=== PATIENT | male | born 1940 | race Caucasian/White ===

== ENCOUNTER → 2016-10-24 08:04 | Outpatient (CLI) | payer MEDICARE | END | disposition home or self-care (01) | LOC: D.RT 08:00 | DX: J45.21 Mild intermittent asthma with (acute) exacerbation (principal) ==

== ENCOUNTER → 2016-12-15 15:26 | Outpatient (CLI) | payer MEDICARE ==
[2016-12-17 10:19] LABS: ANA REFLEX - DIRECT Negative (Negative)
[2016-12-18 12:18] LABS: ANGIOTENSIN CONVERTING ENZYME 43 U/L (14-82)
== END | disposition home or self-care (01) ==
LOC: D.LABREF 15:26
PROVIDERS: Internal Medicine Pulmonary Disease
DX: J44.9 Chronic obstructive pulmonary disease, unspecified (principal)

== ENCOUNTER 2017-04-13 09:03 | Day surgery (SDC) | payer MEDICARE ==
[~2017-04-13] VITALS: Ht 175.3 cm; Wt 104.5 kg
[2017-04-13 10:16] LABS: HEMATOCRIT 41.3 % (42.0-54.0); HEMOGLOBIN 13.5 g/dL (13.5-17.5); MCH 27.6 pg (26.0-34.0); MCHC 32.7 g/dL (31.0-37.0); MCV 84.3 fL (80.0-100.0); MEAN PLATELET VOLUME 9.1 fL (7.4-10.4); RBC 4.9 10x6/uL (4.20-6.10); RDW 14.6 % (11.5-14.5); WBC 9.6 10x3/uL (4.8-10.8)
[2017-04-13 10:27] LABS: ANION GAP 11.7 mmol/L (8-16); CALCIUM 9.1 mg/dL (8.5-10.1); CARBON DIOXIDE 28.4 mmol/L (21.0-32.0); CREATININE - SERUM 2.1 mg/dL (0.6-1.3); POTASSIUM - SERUM 4.1 mmol/L (3.5-5.1)
[2017-04-13] MEDS ORDERED: ZYLOPRIM100 MG PO (10:46)
[2017-04-13] MEDS ORDERED: ARICEPT10 MG PO (10:47)
[2017-04-13] MEDS ORDERED: HYZAAR 100-12.51 TAB PO (10:48)
[2017-04-13] MEDS ORDERED: ZOCOR40 MG PO (10:50)
[2017-04-13] MEDS ORDERED: PROPRANOLOL HCL80 MG PO (10:50)
[2017-04-13] MEDS ORDERED: NIASPAN500 MG PO (10:51)
[2017-04-13] MEDS ORDERED: FISH OIL 1,0001 CA1 PO (10:52)
[2017-04-13] MEDS ORDERED: FOLTX TABLET1 EACH PO (10:52)
[2017-04-13] MEDS ORDERED: ADVAIR 500/501 DISK INH (10:53)
[2017-04-13] MEDS ORDERED: VENTOLIN HFA18 GM INH (10:53)
[2017-04-13] MEDS ORDERED: ATROVENT 0.02%2.5 ML UPD (10:54)
[2017-04-13] MEDS ORDERED: IPRAT-ALBUT 0.5-3 ML UPD (10:56)
[2017-04-13 11:07] VITALS: BP 127/62; Ht 175.3 cm; Wt 104.5 kg
--- NOTE | 2017-04-13 11:47 | NUR ---
STARTED 2O GAUGE IV IN RIGHT AC. 1 ATTEMPT. CDI AND PATENT.
--- NOTE | 2017-04-13 13:00 | NUR ---
PT REC'D TO ROOM VIA STRETCHER. AWAKE, ALERT, ORIENTED. DR. ANG IN TO SPEAK WITH PT AND .
--- NOTE | 2017-04-13 13:15 | NUR ---
FULL LIQ DIET PROVIDED.
--- NOTE | 2017-04-13 13:50 | NUR ---
TOLERATED FULL LIQ DIET WITH NO N/V.
--- NOTE | 2017-04-13 14:20 | NUR ---
D/C INSTRUCTIONS EXPLAINED TO PT, WITH ALL APPOINTMENTS. VOICED UNDERSTANDING. COPIES OF ALL GIVEN.
--- NOTE | 2017-04-13 14:25 | NUR ---
D/C'D HOME VIA W/C TO PRIVATE CAR.
--- NOTE | 2017-04-13 15:44 | NUR ---
ORDERS, FINDINGS AND DEMOGRAPHIC SHEETS FAXED TO [facility]. THEY ARE TO CONTACT PT. DEMOGRAPHIC AND FINDINGS FAXED TO DR. DUMONT'S OFFICE REQUESTED.
--- NOTE | 2017-04-16 11:51 | OP ---
PATIENT NAME: KELSI WADDELL MEDICAL RECORD: [id number] :41 LOCATION:[facility] ADMISSION DATE: SURGEON: KATTY ANG DO DATE OF OPERATION: 04/13/2017 PROCEDURE: Colonoscopy with polypectomy, biopsy, and submucosal injection. SCOPE: CompStak video pediatric colonoscope. MEDICATIONS: Propofol 250 mg IV per anesthesia. ESTIMATED BLOOD LOSS: Insignificant. WITHDRAWAL TIME: 17 minutes. COMPLICATIONS: None. INDICATIONS FOR PROCEDURE: Right-sided abdominal pain and occult blood in stools. FINDINGS: Informed consent was given. The patient was made comfortable with the above medication. After reaching an adequate level of sedation by slow IV push, the patient was placed on his left side. A digital rectal examination was performed and it was normal. The endoscope was then advanced under direct visualization through the rectum to the cecum with visualization of the appendiceal orifice and ileocecal valve. The scope was slowly withdrawn and mucosa was carefully examined. Retroflexion was performed in the rectum. In the proximal descending colon, there was a single benign appearing sessile polyp which measured approximately 5 mm in diameter. It was removed using a hot snare in 1 piece and completely retrieved. In the distal descending to sigmoid colon located at approximately 30 cm, a mass was visualized. It measured approximately 4 x 4 cm in size. It encompassed 50-75% of the circumference of the colonic wall. It protruded in the lumen and was friable. Multiple biopsies were taken to secure the diagnosis. Upon retroflexion in the rectum, there was visualization of small to medium sized internal hemorrhoids, which were not bleeding. There was also moderate pandiverticulosis. After the mass was biopsied, Valery ink tattooing was performed both proximally and distally to the mass. Approximately 8-9 mL of tattoo was used. The endoscope was withdrawn from the patient. The patient tolerated the procedure well and there were no complications. IMPRESSION: 1. A mass was located at approximately 30 cm from the anal verge. It measured approximately 4 cm x 4 cm, and encompassed 50-75% of the circumference of the colon wall. Multiple biopsies were taken and tattoo was placed both proximally and distally. 2. Proximal descending colon polyp removed using a hot snare. 3. Small to moderate sized internal hemorrhoids without bleeding. 4. Moderate pandiverticulosis. PLAN AND RECOMMENDATIONS: 1. Discharge home when recovery parameters are met. 2. Follow up biopsy specimen results. 3. Referrals to oncology and surgery. 4. PET CT scan for staging. OPERATIVE REPORT [id number] KELSI WADDELL 5. CEA level. 6. We will need a repeat colonoscopy in 6 months to 1 year after resection. TRANSINT:[id number] Voice Confirmation ID: [id number] DOCUMENT ID: [id number] KATTY ANG DO at 1151 CC: [id number] DICTATION DATE: 04/13/17 1248 MEDICAL LEADER: 04/13/17 1305 [facility] 04/13/17 [id number] [place] [address]
== END 2017-04-13 14:25 | disposition home or self-care (01) ==
LOC: D.OPS 09:03
PROVIDERS: Anesthesiology
DX: R19.5 Other fecal abnormalities (principal); D12.4 Benign neoplasm of descending colon; R22.2 Localized swelling, mass and lump, trunk; J44.9 Chronic obstructive pulmonary disease, unspecified; I10 Essential (primary) hypertension; Z01.812 Encounter for preprocedural laboratory examination

== ENCOUNTER 2017-05-05 05:12 | Inpatient (IN) | payer OTHER ==
[2017-05-01 10:54] LABS: BASOPHILS 0.4 % (0-2); EOSINOPHILS 3.5 % (0-7); HEMATOCRIT 39.4 % (42.0-54.0); HEMOGLOBIN 12.9 g/dL (13.5-17.5); IMMATURE GRANULOCYTES 0.3 % (0-5); MCH 27.9 pg (26.0-34.0); MCHC 32.7 g/dL (31.0-37.0); MCV 85.1 fL (80.0-100.0); MEAN PLATELET VOLUME 8.8 fL (7.4-10.4); MONOCYTES 13.6 % (2-11); NEUTROPHILS 63.2 % (40-80); PLATELET COUNT 225 10x3/uL (130-400); RBC 4.63 10x6/uL (4.20-6.10); RDW 14.8 % (11.5-14.5); WBC 7.1 10x3/uL (4.8-10.8)
[2017-05-01 11:01] LABS: APTT 31.4 SECONDS (22.8-39.4); INR 1.05 (0.85-1.17); PROTIME 13.3 SECONDS (11.6-15.0)
[2017-05-01 11:23] LABS: ANION GAP 11.4 mmol/L (8-16); CALCIUM 9.5 mg/dL (8.5-10.1); CARBON DIOXIDE 32.7 mmol/L (21.0-32.0); POTASSIUM - SERUM 4.1 mmol/L (3.5-5.1)
[~2017-05-05] VITALS: Ht 175.3 cm; Wt 103.9 kg
--- NOTE | ~2017-05-05 | DS ---
PATIENT:KELSI WADDELL :42 MEDICAL RECORD: [id number] DISCHARGE SUMMARY ADMISSION DATE: 05/05/17 DISCHARGE DATE: 05/08/17 DATE OF ADMISSION: 05/05/2017 DATE OF DISCHARGE: 05/08/2017 ADMISSION DIAGNOSES: 1. Adenocarcinoma of the sigmoid colon. 2. Hypertension. 3. Chronic obstructive pulmonary disease. 4. Alzheimer's. 5. Parkinson disease. DISCHARGE DIAGNOSES: 1. Adenocarcinoma of the sigmoid colon. 2. Hypertension. 3. Chronic obstructive pulmonary disease. 4. Alzheimer's. 5. Parkinson disease. 6. "The patient has stage III sigmoid colon cancer." PROCEDURE: Hand-assisted laparoscopic sigmoid colectomy on 05/05/2017. CONSULTATIONS: None. REPORT OF HOSPITALIZATION: The patient was admitted to the hospital after a successful hand-assisted laparoscopic sigmoid colectomy. The patient had a normal postoperative course with no complications. The patient's blood counts were stable. His kidney function, which was mildly elevated, actually improved throughout his hospitalization. Eventually on postoperative day #2, he started having bowel function and was started on a diet. He tolerated this well and was able to be advanced. By postoperative day #3, he was ambulating and off all IV medications and felt to be stable for discharge home. His incisions were healing well. He had no fevers and no problems with his vital signs. His final path report returned and it showed that he had 5 out of 6 lymph nodes positive for malignancy giving him a stage III diagnosis. DISCHARGE INSTRUCTIONS: He will return to clinic or call for any questions or concerns, fevers, chills, nausea, vomiting, or worsening abdominal pain. ACTIVITIES: No heavy lifting or straining for 6 weeks postoperatively. FOLLOWUP: In clinic with me in 10 to [address] Acosta in 1-2 weeks. DISCHARGE MEDICATIONS: Resume all home medications with the inclusion of Banquete 10s. TRANSINT:[id number] Voice Confirmation ID: [id number] DOCUMENT ID: [id number] DISCHARGE SUMMARY REPORT [id number] KELSI WADDELL CHRISTIAN MD at 0956 CC: [id number] DICTATION DATE: 05/08/17 0805 CREATIVE PROJECT MANAGER: 05/08/17 1307 [facility] 05/08/17 [place] [address]
--- NOTE | ~2017-05-05 | OP ---
PATIENT NAME: KELSI WADDELL MEDICAL RECORD: [id number] :41 LOCATION:[facility] [place]:05/05/17 SURGEON: FELIPE CONDON MD DATE OF OPERATION: 05/05/2017 DATE OF OPERATION: 05/05/2017 PREOPERATIVE DIAGNOSES: 1. Sigmoid colon cancer. 2. Chronic obstructive pulmonary disease. 3. Hypercholesterolemia. 4. Hypertension. 5. Asthma. 6. Arthritis. POSTOPERATIVE DIAGNOSES: 1. Sigmoid colon cancer. 2. Chronic obstructive pulmonary disease. 3. Hypercholesterolemia. 4. Hypertension. 5. Asthma. 6. Arthritis. PROCEDURE: Hand-assisted laparoscopic sigmoid colectomy. SURGEON: Felipe Condon MD REPORT OF PROCEDURE: The patient's abdomen was prepped and draped in sterile fashion. A skin incision was made in the midline in the suprapubic region. Electrocautery was used to dissect through the subcutaneous tissues and fascia until we entered the abdominal cavity. A Gelport was inserted with a 5-mm trocar within it. The abdomen was then insufflated. A 5-mm trocar was placed in the right lateral abdomen and a 12-mm trocar was then placed just anterior to the right anterior superior iliac crest. The colon was elevated. I could see a small tattooing of the distal sigmoid colon and a palpable mass was present. We made a window at the rectosigmoid junction just below the rectum in the mesocolon. A 55 blue load Endo TEO stapler was used to transect the proximal rectum at this point. The mesentery was then taken down initially by scoring the peritoneum with electrocautery. We were able to transect the superior hemorrhoidal vessel as extended towards the proximal rectum. This was done using a 55 white load Endo TEO stapler. We then followed this blood vessel down to the aortic bifurcation and again freed off of the peritoneum and was able to transect the superior hemorrhoidal artery using a 55 white load Endo TEO stapler. At this point, we inspected the remainder of the abdomen and saw no signs of any intra-abdominal processes. Preoperatively, the patient had a PET-CT scan, which showed no signs of any metastatic disease. The liver and abdominal wall themselves looked normal. At this point, we removed insufflation and eviscerated the sigmoid colon out of the wound through the wound protector. The mesentery was taken down using sequential clamp and tie technique with 2-0 silks. We then transected the distal left colon using electrocautery. The 2-0 Prolene was placed around the distal colon as a pursestring and a 29 EEA anvil was inserted. This was tied down tightly around the anvil. We then placed multiple rectal dilators through the anus and rectum and finally we passed the 29 EEA stapler. End-to-end anastomosis was performed. There were noted to be 2 intact rings of tissue in the stapler and we checked the anastomosis under water OPERATIVE REPORT [id number] KELSI WADDELL by instilling air through the rectum and it showed no signs of any leakage. We then placed a row of Lemberted 3-0 silk sutures over the anterior portion of the patient's anastomosis. There did not appear to be any tension on the anastomosis. At this point, we irrigated out the abdomen thoroughly with normal saline and assured there was no sign of any active bleeding. The midline fascia was then closed with running #1 looped PDS times 2. We irrigated out the wound and then closed all the incisions with skin andrew. COMPLICATIONS: None. CONDITION: Stable. ANESTHESIA: General endotracheal. BLOOD LOSS: 30 mL. TRANSINT:[id number] Voice Confirmation ID: [id number] DOCUMENT ID: [id number] FELIPE CONDON MD at 1542 CC: MACK REZA MD and KATTY ANG DO [id number] DICTATION DATE: 05/05/17 1424 [employer]CHO[employer] TEACHER: 05/05/17 1513 [facility] [address] [place] [address]
[~2017-05-05 05:12] MED LIST: ADVAIR 500/501 DISK INH; ARICEPT10 MG PO; ATROVENT 0.02%2.5 ML UPD; FISH OIL 1,0001 CA1 PO; FOLTX TABLET1 EACH PO; HYZAAR 100-12.51 TAB PO; IPRAT-ALBUT 0.5-3 ML UPD; NIASPAN500 MG PO; PROPRANOLOL HCL80 MG PO; VENTOLIN HFA18 GM INH; ZOCOR40 MG PO; ZYLOPRIM100 MG PO
[2017-05-05 11:32] VITALS: BP 120/61; BMI 33.9
[2017-05-05 15:52] VITALS: BP 108/57
[2017-05-05 18:53] VITALS: BP 108/57; BMI 33.9
[2017-05-05 20:00] VITALS: BP 97/56
[2017-05-06] VITALS: BP 110/60
[2017-05-06 04:00] VITALS: BP 109/58
[2017-05-06 05:47] LABS: BASOPHILS 0.2 % (0-2); EOSINOPHILS 0.7 % (0-7); HEMATOCRIT 37.4 % (42.0-54.0); HEMOGLOBIN 12.1 g/dL (13.5-17.5); IMMATURE GRANULOCYTES 0.3 % (0-5); LYMPHOCYTES 13.2 % (15-50); MCH 27.5 pg (26.0-34.0); MCHC 32.4 g/dL (31.0-37.0); MEAN PLATELET VOLUME 9.2 fL (7.4-10.4); NEUTROPHILS 72.6 % (40-80); RDW 14.9 % (11.5-14.5)
[2017-05-06 05:52] LABS: ANION GAP 12.4 mmol/L (8-16); CALCIUM 8.4 mg/dL (8.5-10.1); CARBON DIOXIDE 28.5 mmol/L (21.0-32.0); POTASSIUM - SERUM 3.9 mmol/L (3.5-5.1)
[2017-05-06 05:57] LABS: PLATELET COUNT 172 10x3/uL (130-400)
[2017-05-06 09:06] VITALS: BP 119/58
[2017-05-06 12:52] VITALS: BMI 33.8
[2017-05-06 13:19] VITALS: BP 113/63
[2017-05-06 16:50] VITALS: BP 125/62
[2017-05-06 21:41] VITALS: BP 109/59
[2017-05-07 01:13] VITALS: BP 100/50
[2017-05-07 04:00] VITALS: BP 149/77
[2017-05-07 05:21] LABS: BASOPHILS 0.1 % (0-2); EOSINOPHILS 1.3 % (0-7); HEMATOCRIT 37.4 % (42.0-54.0); IMMATURE GRANULOCYTES 0.1 % (0-5); LYMPHOCYTES 9.4 % (15-50); MCH 27.5 pg (26.0-34.0); MCHC 32.1 g/dL (31.0-37.0); MCV 85.6 fL (80.0-100.0); MEAN PLATELET VOLUME 9.3 fL (7.4-10.4); MONOCYTES 12.1 % (2-11); PLATELET COUNT 203 10x3/uL (130-400); RBC 4.37 10x6/uL (4.20-6.10); RDW 14.8 % (11.5-14.5); WBC 6.9 10x3/uL (4.8-10.8)
[2017-05-07 06:41] LABS: ANION GAP 13.5 mmol/L (8-16); CALCIUM 8.5 mg/dL (8.5-10.1); CARBON DIOXIDE 25.3 mmol/L (21.0-32.0); CREATININE - SERUM 1.7 mg/dL (0.6-1.3); POTASSIUM - SERUM 3.8 mmol/L (3.5-5.1)
[2017-05-07 08:53] VITALS: BP 135/63
[2017-05-07 12:24] VITALS: BP 144/70
[2017-05-07 15:04] VITALS: Ht 175.3 cm; Wt 103.9 kg
[2017-05-07 16:27] VITALS: BP 152/77
[2017-05-08 06:11] LABS: BASOPHILS 0.2 % (0-2); EOSINOPHILS 3.4 % (0-7); HEMATOCRIT 33.5 % (42.0-54.0); HEMOGLOBIN 10.9 g/dL (13.5-17.5); IMMATURE GRANULOCYTES 0.4 % (0-5); LYMPHOCYTES 13.8 % (15-50); MCH 27.4 pg (26.0-34.0); MCHC 32.5 g/dL (31.0-37.0); MCV 84.2 fL (80.0-100.0); MONOCYTES 14.4 % (2-11); NEUTROPHILS 67.8 % (40-80); PLATELET COUNT 199 10x3/uL (130-400); RBC 3.98 10x6/uL (4.20-6.10); RDW 14.8 % (11.5-14.5); WBC 5.4 10x3/uL (4.8-10.8)
[2017-05-08 06:35] LABS: ANION GAP 11.2 mmol/L (8-16); CALCIUM 8.4 mg/dL (8.5-10.1); CARBON DIOXIDE 27.4 mmol/L (21.0-32.0); CREATININE - SERUM 1.4 mg/dL (0.6-1.3); POTASSIUM - SERUM 3.6 mmol/L (3.5-5.1)
[2017-05-08] MEDS ORDERED: HYDROCODONE-APA1 TAB PO (08:00)
[2017-05-08 08:40] VITALS: BP 157/68
== END 2017-05-08 09:54 | disposition home or self-care (01) | DRG 330 ==
LOC: D.MS 05:12 → D.SDCHOLD 05:12 → D.MS 11:45
PROVIDERS: Anesthesiology; Surgery
PROC: 0DBN0ZZ Excision of Sigmoid Colon, Open Approach (ICD-10-PCS; principal; 2017-05-05 12:00)
DX: C18.9 Malignant neoplasm of colon, unspecified (principal); C77.2 Secondary and unspecified malignant neoplasm of intra-abdominal lymph nodes; J44.9 Chronic obstructive pulmonary disease, unspecified; E78.00 Pure hypercholesterolemia, unspecified; M19.90 Unspecified osteoarthritis, unspecified site; G20 Parkinson's disease; I12.9 Hypertensive chronic kidney disease with stage 1 through stage 4 chronic kidney disease, or unspecified chronic kidney disease; N18.3 Chronic kidney disease, stage 3 (moderate); G30.9 Alzheimer's disease, unspecified; F02.80 Dementia in other diseases classified elsewhere, unspecified severity, without behavioral disturbance, psychotic disturbance, mood disturbance, and anxiety

== ENCOUNTER 2017-06-02 05:28 | Day surgery (SDC) | payer OTHER ==
[~2017-06-02] VITALS: Ht 175.3 cm; Wt 99.3 kg
--- NOTE | ~2017-06-02 | OP ---
PATIENT NAME: KELSI WADDELL MEDICAL RECORD: [id number] :41 LOCATION:[facility] ADMISSION DATE: SURGEON: FELIPE CONDON MD DATE OF OPERATION: 06/02/2017 DATE OF PROCEDURE: 06/02/2017 PREOPERATIVE DIAGNOSES: 1. Stage III colon cancer. 2. Hypertension. 3. Hyperlipidemia. 4. Chronic obstructive pulmonary disease. POSTOPERATIVE DIAGNOSES: 1. Stage III colon cancer. 2. Hypertension. 3. Hyperlipidemia. 4. Chronic obstructive pulmonary disease. PROCEDURE: 1. Left subclavian vein port placement. 2. Fluoroscopic interpretation. SURGEON: Felipe Condon MD REPORT OF PROCEDURE: The patient's left chest was prepped and draped in sterile fashion. A needle was used to cannulate the left subclavian vein. A guidewire was advanced with ease. Fluoro was used to note that the wire was in good position in the venous system. A skin incision was made on the left superior lateral chest and a subcutaneous pouch was made over the pectoral fascia. The catheter was tunneled between this pouch and the wire exit site. The port was then sutured to the pectoral fascia using interrupted 2-0 Prolenes times 2. The catheter was cut with a beveled tip at 25 cm. The dilator trocar device was then placed over the wire and the wire and dilator were removed. The catheter tip was advanced through the trocar and the trocar was removed. The catheter tip resting in good position in the right atrial superior vena caval junction. The catheter aspirated nonpulsatile dark blood and flushed easily with heparinized saline. The subcutaneous tissues were reapproximated with interrupted 3-0 Vicryl and the skin incision was closed with subcutaneous 5-0 Monocryl. COMPLICATIONS: None. CONDITION: Stable. ANESTHESIA: General endotracheal. BLOOD LOSS: Minimal. TRANSINT:[id number] Voice Confirmation ID: [id number] DOCUMENT ID: [id number] OPERATIVE REPORT [id number] BAIRONFELIPE EARLY MD CC: MACK REZA [id number] DICTATION DATE: 06/02/17 0840 MASTER SONAR TECHNICIAN: 06/02/17 1145 [facility] [address] [place] [address]
[~2017-06-02 05:28] MED LIST changes: +HYDROCODONE-APA1 TAB PO
[2017-06-02 06:30] VITALS: BP 94/64; Ht 175.3 cm; Wt 99.3 kg
[2017-06-02 07:38] LABS: BASOPHILS 0.3 % (0-2); EOSINOPHILS 1.7 % (0-7); HEMATOCRIT 34.7 % (42.0-54.0); HEMOGLOBIN 11.2 g/dL (13.5-17.5); IMMATURE GRANULOCYTES 0.3 % (0-5); MCH 27.1 pg (26.0-34.0); MCHC 32.3 g/dL (31.0-37.0); MCV 83.8 fL (80.0-100.0); MEAN PLATELET VOLUME 8.5 fL (7.4-10.4); NEUTROPHILS 67.7 % (40-80); PLATELET COUNT 192 10x3/uL (130-400); RBC 4.14 10x6/uL (4.20-6.10); RDW 14.5 % (11.5-14.5); WBC 6.6 10x3/uL (4.8-10.8)
[2017-06-02 07:48] LABS: CARBON DIOXIDE 25.8 mmol/L (21.0-32.0); CREATININE - SERUM 2.3 mg/dL (0.6-1.3); POTASSIUM - SERUM 3.8 mmol/L (3.5-5.1)
[2017-06-02 07:50] LABS: APTT 33.1 SECONDS (22.8-39.4); INR 1.17 (0.85-1.17); PROTIME 14.5 SECONDS (11.6-15.0)
== END 2017-06-02 11:00 | disposition home or self-care (01) ==
LOC: D.OPS 05:28
PROVIDERS: Anesthesiology; Surgery
DX: C18.9 Malignant neoplasm of colon, unspecified (principal); I10 Essential (primary) hypertension; E78.5 Hyperlipidemia, unspecified; J44.9 Chronic obstructive pulmonary disease, unspecified; Z01.812 Encounter for preprocedural laboratory examination

== ENCOUNTER 2017-08-11 11:23 | Inpatient (IN) | payer OTHER ==
[~2017-08-11] VITALS: Ht 175.3 cm; Wt 96.7 kg
[2017-08-11 12:01] LABS: ANION GAP 19.1 mmol/L (8-16); BILIRUBIN - TOTAL 1.01 mg/dL (0.2-1.3); CALCIUM 8.6 mg/dL (8.5-10.1); CREATININE - SERUM 2.4 mg/dL (0.6-1.3); POTASSIUM - SERUM 4.1 mmol/L (3.5-5.1); PROTEIN - SERUM 7.1 g/dL (6.4-8.2)
[2017-08-11 13:10] LABS: APPEARANCE HAZY (CLEAR); BILIRUBIN NEGATIVE (NEGATIVE); COLOR DK YELLOW (YELLOW); GLUCOSE NEGATIVE (NEGATIVE); KETONE NEGATIVE (NEGATIVE); NITRITE NEGATIVE (NEGATIVE); PROTEIN 1+ mg/dL (NEGATIVE); SPECIFIC GRAVITY 1.025 (1.005-1.020); UROBILINOGEN NORMAL (NORMAL)
[2017-08-11 13:12] LABS: BACTERIA MODERATE /hpf (NONE SEEN); EPITHELIAL CELLS RARE /hpf (0-5); RED CELLS - URINE RARE /hpf (0-5); WHITE CELLS - URINE RARE /hpf (0-5)
[2017-08-11 13:23] LABS: BASOPHILS 0 % (0-2); EOSINOPHILS 0 % (0-7); HEMATOCRIT 37.7 % (42.0-54.0); HEMOGLOBIN 12.8 g/dL (13.5-17.5); IMMATURE GRANULOCYTES 0.5 % (0-5); LYMPHOCYTES 10.9 % (15-50); MCH 28.3 pg (26.0-34.0); MCV 83.2 fL (80.0-100.0); MEAN PLATELET VOLUME 10.3 fL (7.4-10.4); MONOCYTES 13.6 % (2-11); RBC 4.53 10x6/uL (4.20-6.10); RDW 17.6 % (11.5-14.5); WBC 3.7 10x3/uL (4.8-10.8)
[2017-08-11 13:25] LABS: PLATELET COUNT 83 10x3/uL (130-400)
[2017-08-11 13:42] LABS: PLATELET ESTIMATE DECREASED
[2017-08-11 16:18] VITALS: BP 112/63
[2017-08-11 20:00] VITALS: BP 107/59
[2017-08-12] VITALS: BP 107/62
[2017-08-12 04:00] VITALS: BP 112/60
[2017-08-12 08:00] VITALS: BP 102/60
[2017-08-12 09:18] LABS: BASOPHILS 0 % (0-2); EOSINOPHILS 0 % (0-7); HEMATOCRIT 33.2 % (42.0-54.0); HEMOGLOBIN 11.2 g/dL (13.5-17.5); IMMATURE GRANULOCYTES 0.3 % (0-5); LYMPHOCYTES 14.9 % (15-50); MCH 28.1 pg (26.0-34.0); MCHC 33.7 g/dL (31.0-37.0); MCV 83.2 fL (80.0-100.0); MEAN PLATELET VOLUME 8.2 fL (7.4-10.4); MONOCYTES 18.8 % (2-11); RBC 3.99 10x6/uL (4.20-6.10); RDW 17.5 % (11.5-14.5); WBC 3.4 10x3/uL (4.8-10.8)
[2017-08-12 09:22] LABS: PLATELET COUNT 53 10x3/uL (130-400)
[2017-08-12 09:26] LABS: ALBUMIN 2.4 g/dL (3.4-5.0); ANION GAP 15.6 mmol/L (8-16); BILIRUBIN - TOTAL 0.53 mg/dL (0.2-1.3); CALCIUM 7.9 mg/dL (8.5-10.1); CARBON DIOXIDE 21.5 mmol/L (21.0-32.0); CREATININE - SERUM 2.3 mg/dL (0.6-1.3); PROTEIN - SERUM 6.1 g/dL (6.4-8.2)
[2017-08-12 09:28] LABS: POTASSIUM - SERUM 3.1 mmol/L (3.5-5.1)
[2017-08-12 11:05] VITALS: BMI 31.5
[2017-08-12 12:00] VITALS: BP 130/70
[2017-08-12 12:39] VITALS: Ht 175.3 cm; Wt 96.7 kg
[2017-08-12 17:09] VITALS: BP 115/63
[2017-08-12 21:01] VITALS: BP 95/59
[2017-08-13 06:05] LABS: HEMATOCRIT 35.3 % (42.0-54.0); MCH 27.9 pg (26.0-34.0); MCV 82.1 fL (80.0-100.0); MEAN PLATELET VOLUME 9.1 fL (7.4-10.4); RDW 17.8 % (11.5-14.5)
[2017-08-13 06:14] LABS: PLATELET COUNT 71 10x3/uL (130-400)
[2017-08-13 06:15] LABS: WBC 1.9 10x3/uL (4.8-10.8)
[2017-08-13 06:22] VITALS: BP 110/72
[2017-08-13 06:27] LABS: ANION GAP 18.6 mmol/L (8-16); CALCIUM 8.6 mg/dL (8.5-10.1); CREATININE - SERUM 1.9 mg/dL (0.6-1.3); MAGNESIUM - SERUM 1.8 mg/dL (1.8-2.4); PHOSPHOROUS 2.6 mg/dL (2.5-4.9)
[2017-08-13 06:28] LABS: POTASSIUM - SERUM 3.6 mmol/L (3.5-5.1)
[2017-08-13 07:33] LABS: LYMPHOCYTES 8 % (15-50); MONOCYTES 2 % (2-11); NEUTROPHILS 84 % (40-80); PLATELET ESTIMATE DECREASED
[2017-08-13 08:51] VITALS: BP 113/68
[2017-08-13 11:40] VITALS: BP 111/67
[2017-08-13 16:48] VITALS: BP 124/58
[2017-08-13 22:13] VITALS: BP 144/68
[2017-08-14 06:09] LABS: ANION GAP 13.7 mmol/L (8-16); CALCIUM 8.6 mg/dL (8.5-10.1); CARBON DIOXIDE 21.5 mmol/L (21.0-32.0); CREATININE - SERUM 2.1 mg/dL (0.6-1.3); POTASSIUM - SERUM 3.2 mmol/L (3.5-5.1)
[2017-08-14 07:17] LABS: BASOPHILS 0.1 % (0-2); EOSINOPHILS 0 % (0-7); HEMATOCRIT 32.7 % (42.0-54.0); HEMOGLOBIN 11.5 g/dL (13.5-17.5); LYMPHOCYTES 3.7 % (15-50); MCH 28.2 pg (26.0-34.0); MCHC 35.2 g/dL (31.0-37.0); MCV 80.1 fL (80.0-100.0); MEAN PLATELET VOLUME 9.5 fL (7.4-10.4); MONOCYTES 6.9 % (2-11); NEUTROPHILS 88.3 % (40-80); PLATELET COUNT 96 10x3/uL (130-400); RBC 4.08 10x6/uL (4.20-6.10); RDW 17.5 % (11.5-14.5); WBC 15.5 10x3/uL (4.8-10.8)
[2017-08-14 08:26] LABS: BASOPHILS 0.1 % (0-2); EOSINOPHILS 0 % (0-7); HEMATOCRIT 33.6 % (42.0-54.0); HEMOGLOBIN 11.7 g/dL (13.5-17.5); IMMATURE GRANULOCYTES 1.8 % (0-5); LYMPHOCYTES 3.4 % (15-50); MCHC 34.8 g/dL (31.0-37.0); MCV 80.4 fL (80.0-100.0); MEAN PLATELET VOLUME 9.9 fL (7.4-10.4); MONOCYTES 6.1 % (2-11); NEUTROPHILS 88.6 % (40-80); PLATELET COUNT 104 10x3/uL (130-400); RBC 4.18 10x6/uL (4.20-6.10); RDW 17.6 % (11.5-14.5); WBC 16.3 10x3/uL (4.8-10.8)
[2017-08-14 08:38] VITALS: BP 111/66
[2017-08-14 11:40] VITALS: BP 129/81
[2017-08-14 14:11] LABS: APPEARANCE SLT CLOUDY (CLEAR); COLOR PINK (YELLOW)
[2017-08-14 14:12] LABS: NITRITE NEGATIVE (NEGATIVE); SPECIFIC GRAVITY 1.025 (1.005-1.020)
[2017-08-14 14:13] LABS: BILIRUBIN NEGATIVE (NEGATIVE); GLUCOSE 50 mg/dL (NEGATIVE); KETONE SMALL mg/dL (NEGATIVE); PROTEIN TRACE mg/dL (NEGATIVE); UROBILINOGEN NORMAL (NORMAL)
[2017-08-14 14:14] LABS: BACTERIA FEW /hpf (NONE SEEN); EPITHELIAL CELLS 0-5 /hpf (0-5); RED CELLS - URINE >50 /hpf (0-5); WHITE CELLS - URINE 0-5 /hpf (0-5)
[2017-08-14 15:47] VITALS: BP 104/70
[2017-08-14 20:00] VITALS: BP 168/72
[2017-08-15 01:00] VITALS: BP 113/58
[2017-08-15 05:00] VITALS: BP 118/65
[2017-08-15 05:15] LABS: BASOPHILS 0.1 % (0-2); EOSINOPHILS 0 % (0-7); HEMATOCRIT 31.9 % (42.0-54.0); HEMOGLOBIN 11.1 g/dL (13.5-17.5); IMMATURE GRANULOCYTES 0.9 % (0-5); LYMPHOCYTES 5.2 % (15-50); MCH 27.9 pg (26.0-34.0); MCHC 34.8 g/dL (31.0-37.0); MCV 80.2 fL (80.0-100.0); MEAN PLATELET VOLUME 10.3 fL (7.4-10.4); MONOCYTES 6.3 % (2-11); NEUTROPHILS 87.5 % (40-80); PLATELET COUNT 111 10x3/uL (130-400); RBC 3.98 10x6/uL (4.20-6.10); RDW 17.7 % (11.5-14.5)
[2017-08-15 05:17] LABS: WBC 9.9 10x3/uL (4.8-10.8)
[2017-08-15 05:26] LABS: ANION GAP 16.1 mmol/L (8-16); CARBON DIOXIDE 21.9 mmol/L (21.0-32.0)
[2017-08-15 08:15] VITALS: BP 119/57
[2017-08-15 11:31] VITALS: BP 120/66
[2017-08-15] MEDS ORDERED: LEVAQUIN750 MG PO (12:02)
[2017-08-15] MEDS ORDERED: MEGACE400 MG/10 PO (12:02)
[2017-08-15] MEDS ORDERED: TESSALON PERLE100 MG PO (12:03)
[2017-08-15] MEDS ORDERED: SINGULAIR10 MG PO (12:03)
[2017-08-15] MEDS ORDERED: MUCINEX DM ER1 EAC1 PO (12:04)
[2017-08-15] MEDS ORDERED: PULMICORT0.5 MG/21 UPD (12:04)
[2017-08-15] MEDS ORDERED: FLUTICASONE PRO16 GM NASAL (12:04)
[2017-08-15] MEDS ORDERED: PROTONIX40 MG PO (12:05)
[2017-08-15] MEDS ORDERED: PREDNISONE10 MG PO (12:06)
[2017-08-15 16:44] VITALS: BP 135/66
[2017-08-15 20:00] VITALS: BP 119/68
[2017-08-16 01:00] VITALS: BP 115/71
[2017-08-16 05:00] VITALS: BP 114/60
[2017-08-16 08:09] LABS: ANION GAP 12.3 mmol/L (8-16); CALCIUM 7.9 mg/dL (8.5-10.1); CREATININE - SERUM 1.8 mg/dL (0.6-1.3); POTASSIUM - SERUM 3.3 mmol/L (3.5-5.1)
[2017-08-16 08:19] LABS: BASOPHILS 0 % (0-2); EOSINOPHILS 0 % (0-7); HEMATOCRIT 28.6 % (42.0-54.0); HEMOGLOBIN 9.9 g/dL (13.5-17.5); IMMATURE GRANULOCYTES 2.3 % (0-5); LYMPHOCYTES 8.5 % (15-50); MCH 27.8 pg (26.0-34.0); MCHC 34.6 g/dL (31.0-37.0); MCV 80.3 fL (80.0-100.0); MEAN PLATELET VOLUME 9.6 fL (7.4-10.4); MONOCYTES 9.2 % (2-11); PLATELET COUNT 104 10x3/uL (130-400); RBC 3.56 10x6/uL (4.20-6.10); RDW 18.2 % (11.5-14.5)
[2017-08-16 08:22] LABS: WBC 5.7 10x3/uL (4.8-10.8)
[2017-08-16 09:53] VITALS: BP 120/70
[2017-08-16 12:49] VITALS: BP 112/63
[2017-08-16 16:30] VITALS: BP 132/60
[2017-08-16 20:00] VITALS: BP 130/62
[2017-08-17 01:00] VITALS: BP 119/69
[2017-08-17 05:00] VITALS: BP 153/69
[2017-08-17 06:08] LABS: BASOPHILS 0.2 % (0-2); EOSINOPHILS 0 % (0-7); HEMATOCRIT 29.2 % (42.0-54.0); HEMOGLOBIN 9.9 g/dL (13.5-17.5); IMMATURE GRANULOCYTES 2.9 % (0-5); LYMPHOCYTES 9.5 % (15-50); MCH 27.4 pg (26.0-34.0); MCHC 33.9 g/dL (31.0-37.0); MCV 80.9 fL (80.0-100.0); MEAN PLATELET VOLUME 9.7 fL (7.4-10.4); MONOCYTES 12.5 % (2-11); NEUTROPHILS 74.9 % (40-80); RBC 3.61 10x6/uL (4.20-6.10); RDW 18.6 % (11.5-14.5); WBC 4.6 10x3/uL (4.8-10.8)
[2017-08-17 06:17] LABS: PLATELET COUNT 129 10x3/uL (130-400)
[2017-08-17 06:28] LABS: ANION GAP 13.9 mmol/L (8-16); CALCIUM 7.8 mg/dL (8.5-10.1); CARBON DIOXIDE 22.4 mmol/L (21.0-32.0); CREATININE - SERUM 1.7 mg/dL (0.6-1.3); POTASSIUM - SERUM 3.3 mmol/L (3.5-5.1)
[2017-08-17 08:30] VITALS: BP 137/66
[2017-08-17 11:28] VITALS: BP 134/71
[2017-08-17 15:45] VITALS: BP 144/78
[2017-08-19 12:16] LABS: IMMUNOGLOBULIN E 116 IU/mL (0-100)
== END 2017-08-17 18:46 | disposition home or self-care (01) | DRG 177 ==
LOC: D.ER 11:23 → D.EDHOLD 13:48 → D.M2 13:48
PROVIDERS: Emergency Medicine; Internal Medicine Hematology & Oncology; Internal Medicine Nephrology; Internal Medicine Pulmonary Disease
DX: J69.0 Pneumonitis due to inhalation of food and vomit (principal); G93.41 Metabolic encephalopathy; J44.0 Chronic obstructive pulmonary disease with (acute) lower respiratory infection; J44.1 Chronic obstructive pulmonary disease with (acute) exacerbation; C18.9 Malignant neoplasm of colon, unspecified; M35.1 Other overlap syndromes; E87.1 Hypo-osmolality and hyponatremia; E44.0 Moderate protein-calorie malnutrition; N39.0 Urinary tract infection, site not specified; I12.9 Hypertensive chronic kidney disease with stage 1 through stage 4 chronic kidney disease, or unspecified chronic kidney disease; N18.3 Chronic kidney disease, stage 3 (moderate); G20 Parkinson's disease; F02.80 Dementia in other diseases classified elsewhere, unspecified severity, without behavioral disturbance, psychotic disturbance, mood disturbance, and anxiety; G30.9 Alzheimer's disease, unspecified; Z85.46 Personal history of malignant neoplasm of prostate; E86.0 Dehydration; D64.9 Anemia, unspecified; J30.9 Allergic rhinitis, unspecified; Z68.31 Body mass index [BMI] 31.0-31.9, adult; E87.6 Hypokalemia; D69.59 Other secondary thrombocytopenia; T45.1X5A Adverse effect of antineoplastic and immunosuppressive drugs, initial encounter

== ENCOUNTER 2017-09-30 12:30 | Emergency (ER) | payer OTHER ==
[2017-08-12 12:39] VITALS: BMI 31.5
[~2017-09-30 12:30] MED LIST changes: +FLUTICASONE PRO16 GM NASAL; +LEVAQUIN750 MG PO; +MEGACE400 MG/10 PO; +MUCINEX DM ER1 EAC1 PO; +PREDNISONE10 MG PO; +PROTONIX40 MG PO; +PULMICORT0.5 MG/21 UPD; +SINGULAIR10 MG PO; +TESSALON PERLE100 MG PO
[2017-09-30 13:37] LABS: BASOPHILS 0.2 % (0-2); EOSINOPHILS 1.3 % (0-7); HEMATOCRIT 33.6 % (42.0-54.0); HEMOGLOBIN 11.4 g/dL (13.5-17.5); IMMATURE GRANULOCYTES 2.4 % (0-5); LYMPHOCYTES 9.9 % (15-50); MCH 29.7 pg (26.0-34.0); MCHC 33.9 g/dL (31.0-37.0); MCV 87.5 fL (80.0-100.0); MEAN PLATELET VOLUME 9.9 fL (7.4-10.4); MONOCYTES 13.5 % (2-11); NEUTROPHILS 72.7 % (40-80); RBC 3.84 10x6/uL (4.20-6.10); RDW 16.4 % (11.5-14.5); WBC 11.9 10x3/uL (4.8-10.8)
[2017-09-30 13:49] LABS: APTT 29.1 SECONDS (22.8-39.4); PROTIME 12.8 SECONDS (11.6-15.0)
[2017-09-30 13:50] LABS: D-DIMER-QUANTITATIVE 2.72 ug/mLFEU (0.20-0.54)
[2017-09-30 13:53] LABS: ALBUMIN 2.8 g/dL (3.4-5.0); ALKALINE PHOSPHATASE 78 U/L (46-116); ALT (SGPT) 27 U/L (10-68); BILIRUBIN - TOTAL 0.97 mg/dL (0.2-1.3); CALC OSMOLALITY 278 mosm/kg (275-300); CALCIUM 9.8 mg/dL (8.5-10.1); CARBON DIOXIDE 25.6 mmol/L (21.0-32.0); CHLORIDE - SERUM 98 mmol/L (98-107); CREATININE - SERUM 2.2 mg/dL (0.6-1.3); GLUCOSE 110 mg/dL (74-106); POTASSIUM - SERUM 4.2 mmol/L (3.5-5.1); PROTEIN - SERUM 7.3 g/dL (6.4-8.2); SODIUM 136 mmol/L (136-145); UREA NITROGEN 29 mg/dL (7-18); eGFR NON AFRICAN AMERICAN 31 mL/min (90-120)
[2017-09-30 13:54] LABS: PLATELET COUNT 236 10x3/uL (130-400)
[2017-09-30 14:19] LABS: CKMB 0.5 U/L (0.0-3.6); CREATINE KINASE 35 UL (21-232); PRO BNP 352 pg/mL (0-450)
== END 2017-09-30 18:14 | disposition home or self-care (01) ==
LOC: D.ER 12:30
PROVIDERS: Family Medicine
DX: J18.9 Pneumonia, unspecified organism (principal); R06.00 Dyspnea, unspecified; Z85.038 Personal history of other malignant neoplasm of large intestine; N18.9 Chronic kidney disease, unspecified; J44.9 Chronic obstructive pulmonary disease, unspecified; R00.0 Tachycardia, unspecified; I49.3 Ventricular premature depolarization; I45.10 Unspecified right bundle-branch block

== ENCOUNTER → 2017-11-11 09:57 | Outpatient (CLI) | payer OTHER ==
[2017-08-12 12:39] VITALS: BMI 31.5
== END | disposition home or self-care (01) ==
LOC: D.RT 09:57
DX: J84.9 Interstitial pulmonary disease, unspecified (principal)

== ENCOUNTER → 2018-04-15 12:32 | Outpatient (CLI) | payer OTHER ==
[2017-08-12 12:39] VITALS: BMI 31.5
== END | disposition home or self-care (01) ==
LOC: D.RT 12:32
DX: J84.9 Interstitial pulmonary disease, unspecified (principal)

== ENCOUNTER → 2018-06-04 12:17 | Outpatient (CLI) | payer OTHER ==
[2017-08-12 12:39] VITALS: BMI 31.5
[2018-06-04 14:26] LABS: CREATININE - SERUM 1.6 mg/dL (0.6-1.3)
== END | disposition home or self-care (01) ==
LOC: D.CT 12:17
PROVIDERS: Surgery
DX: C18.7 Malignant neoplasm of sigmoid colon (principal)

== ENCOUNTER 2018-06-23 07:04 | Day surgery (SDC) | payer OTHER ==
[~2018-06-23] VITALS: Ht 175.3 cm; Wt 96.6 kg
[2018-06-23 07:32] LABS: BASOPHILS 0.7 % (0-2); EOSINOPHILS 2.8 % (0-7); HEMATOCRIT 40.7 % (42.0-54.0); HEMOGLOBIN 13.3 g/dL (13.5-17.5); IMMATURE GRANULOCYTES 0.3 % (0-5); LYMPHOCYTES 21.3 % (15-50); MCH 28.2 pg (26.0-34.0); MCHC 32.7 g/dL (31.0-37.0); MCV 86.2 fL (80.0-100.0); MONOCYTES 9.7 % (2-11); NEUTROPHILS 65.2 % (40-80); RBC 4.72 10x6/uL (4.20-6.10); RDW 14.8 % (11.5-14.5); WBC 7.6 10x3/uL (4.8-10.8)
[2018-06-23 07:41] LABS: PLATELET COUNT 167 10x3/uL (130-400)
[2018-06-23 07:51] LABS: ANION GAP 16.7 mmol/L (8-16); CALCIUM 9.2 mg/dL (8.5-10.1); CARBON DIOXIDE 27.3 mmol/L (21.0-32.0); CREATININE - SERUM 2.2 mg/dL (0.6-1.3)
[2018-06-23 09:17] VITALS: BP 98/63; Ht 175.3 cm; Wt 96.6 kg
--- NOTE | 2018-06-25 07:24 | OP ---
PATIENT NAME: KELSI WADDELL MEDICAL RECORD: [id number] :41 [facility] AD[facility]ION DATE: SURGEON: KATTY ANG DO DATE OF OPERATION: 06/23/2018 PROCEDURE: Colonoscopy. INDICATIONS FOR PROCEDURE: Surveillance colonoscopy based on a personal history of colon cancer diagnosed in April of 2017, status post sigmoid colectomy and chemotherapy. SCOPE: Olympus video pediatric colonoscope. MEDICATIONS: Propofol 125 mg IV per anesthesia. WITHDRAWAL TIME: 11 minutes. ESTIMATED BLOOD LOSS: Minimal. COMPLICATIONS: None. FINDINGS: Informed consent was given. The patient was made comfortable with the above medication. After reaching an adequate level of sedation by slow IV push, the patient was placed on his left side. A digital rectal examination was performed and was normal. The endoscope was then advanced under direct visualization through the rectum to the cecum, confirmed by the presence of the appendiceal orifice and ileocecal valve. The endoscope was slowly withdrawn and the mucosa was carefully examined. Prep quality was good. There was evidence of prior intervention in the sigmoid colon, where the previous colon mass was resected with a primary anastomosis. The site appears healthy and is healing well. There are some andrew and suture present with a mild granular reaction around that site, but everything appears normal. There was an evidence of mild diverticulosis involving the descending and sigmoid colon. There was no evidence of diverticulitis. Retroflexion was performed in the rectum with a normal-appearing rectal wall. There were no polyps visualized on today's examination. Random cold forceps biopsies were taken in the colon due to the patient's intermittent history of diarrhea, status post chemotherapy. These biopsies will be submitted for histopathology and to rule out the presence of microscopic colitis. The endoscope was withdrawn from the patient. The patient tolerated the procedure well, and there were no complications. IMPRESSION: 1. Evidence of prior partial colectomy due to a colon mass found on previous colonoscopy. 2. Otherwise, normal colonoscopy to cecum. PLAN AND RECOMMENDATIONS: 1. Discharge home when recovery parameters are met. 2. Follow up biopsy specimen results. 3. High-fiber diet. 4. Continue current medications. 5. Recall colonoscopy in 1 year for continued surveillance based on a personal history of colon cancer. TRANSINT:[id number] Voice Confirmation ID: [id number] DOCUMENT ID: [id number] OPERATIVE REPORT [id number] KELSI WADDELLKATTY MURRIETA DO at 0724 CC: [id number] DICTATION DATE: 06/23/18 1026 YOUTH PROBATION OFFICER: 06/23/18 1048 [facility] 06/23/18 [id number] [place] [address]
== END 2018-06-23 11:40 | disposition home or self-care (01) ==
LOC: D.OPS 07:04
PROVIDERS: Anesthesiology
DX: Z12.11 Encounter for screening for malignant neoplasm of colon (principal); K57.30 Diverticulosis of large intestine without perforation or abscess without bleeding; Z85.038 Personal history of other malignant neoplasm of large intestine; Z90.49 Acquired absence of other specified parts of digestive tract; Z92.21 Personal history of antineoplastic chemotherapy; Z01.812 Encounter for preprocedural laboratory examination; R19.7 Diarrhea, unspecified

== ENCOUNTER → 2018-11-22 09:23 | Outpatient (CLI) | payer OTHER ==
[2018-06-23 09:17] VITALS: BMI 31.5
== END | disposition home or self-care (01) ==
LOC: D.RT 09:23
PROVIDERS: ATTEND Internal Medicine Pulmonary Disease
DX: J84.112 Idiopathic pulmonary fibrosis (principal)

== ENCOUNTER → 2019-02-28 10:37 | Outpatient (CLI) | payer OTHER ==
[2018-06-23 09:17] VITALS: BMI 31.5
== END | disposition home or self-care (01) ==
LOC: D.RT 10:37
PROVIDERS: ATTEND Internal Medicine Pulmonary Disease
DX: J84.112 Idiopathic pulmonary fibrosis (principal)